=== PATIENT | female | born 1980 | race Caucasian/White ===

== ENCOUNTER 2016-07-30 10:33 | Emergency (ER) | payer OTHER ==
[~2016-07-30] VITALS: Ht 149.9 cm; Wt 56.2 kg
[2016-07-30 10:41] VITALS: TEMP 36.8; Ht 149.9 cm; Wt 56.2 kg
[2016-07-30] MEDS ORDERED: ONDANSETRON INJ 2 MG/ML 2 ML VIAL IV STA (11:08)
[2016-07-30] MEDS ORDERED: SODIUM CHLORIDE 0.9% 1000ML 1,000 ML IV STA (11:08)
[2016-07-30] MEDS ORDERED: MoRPHine SULFATE 4 MG/ML 1 ML CARP\\VIAL IV STA (11:08)
[2016-07-30 11:17] LABS: HEMATOCRIT 46.5 % (37-47); MEAN CELL VOLUME 94.5 fL (80-100); MEAN CORPUSCULAR HEMOGLOBIN 32.9 pg (25-34); MEAN CORPUSCULAR HGB CONC 34.8 g/dl (32-36); MEAN PLATELET VOLUME 9.6 fL (7.4-10.4); PLATELET COUNT 276 K/uL (130-400); RED BLOOD COUNT 4.92 M/uL (4.2-5.4); WHITE BLOOD COUNT 6.64 K/uL (4.8-10.8)
--- NOTE | 2016-07-30 11:19 | EMERGENCY ROOM VISIT NOTE ---
History First contact with patient: 10:59 Chief Complaint: FLANK PAIN Stated Complaint: LEFT SIDE, BACK/FRONT PAIN History of Present Illness The patient is a 36 year old female who presents to the Emergency Room with complaints of left flank pain which began this morning. The patient reports that she was pain-free when she went to bed last night, but was restless. She states that when she woke up this moaning, she had pain in the left side of her back. She took ibuprofen without relief but was able to go back to bed. She reports that the pain began to radiate into her left lower abdomen. She reports occasional nausea, but has not vomited. She has felt chills, but denies any fevers. She rates the discomfort a 5/10 and states that it is constant. She denies any aggravating or alleviating factors. She denies any history of kidney stones, but does report a history of kidney stones in both her mother and father. She has had a cholecystectomy, but denies any other significant past medical history. She reports she currently has her menstrual period. The patient denies any urinary symptoms, abnormal vaginal discharge, chest pain, shortness of breath, URI symptoms or changes in bowel movements. Review of Systems A complete 10-point Review of Systems was discussed with the patient, with pertinent positives and negatives listed in the History of Present Illness. All remaining Review of Systems questions can be considered negative unless otherwise specified. Past Medical/Surgical History Medical Problems: (1) history of skin problems (2) Migraine Surgical Problems: (1) History of hysterectomy (2) History of tonsillectomy (3) History of tubal ligation Family History Cancer Diabetes mellitus Heart disease Hypertension Kidney disease Kidney stones Social History Smoking Status: Current Every Day Smoker Alcohol Use: occasionally Marital Status: in relationship Housing Status: lives with family Occupation Status: unemployed Current/Historical Medications No Active Prescriptions or Reported Meds Allergies Coded Allergies: Penicillins (Verified Allergy, Unknown, nausea, 07/30/16) Sulfa Antibiotics (Verified Allergy, Unknown, RASH, 07/30/16) Physical Exam Vital Signs Date Time Temp Pulse Resp B/P Pulse Ox O2 Delivery O2 Flow Rate FiO2 07/30/16 12:18 69 96/58 97 Room Air 07/30/16 10:41 36.8 71 18 106/68 99 Room Air Physical Exam VITALS: Vitals are noted on the nurse's note and reviewed by myself. Vital signs stable. GENERAL: This is a 36-year-old female, in no acute distress, nondiaphoretic, well-developed well-nourished. SKIN: Capillary reflex less than 2 seconds. HEART: Regular rate and rhythm without murmurs gallops or rubs. LUNGS: Clear to auscultation bilaterally without wheezes, rales or rhonchi. ABDOMEN: Positive bowel sounds x 4. Soft, nontender without masses or organomegaly. MUSCULOSKELETAL: Mild left CVA tenderness NEURO: Patient was alert and oriented to person place and time. Medical Decision & Procedures ER Provider Diagnostic Interpretation: ABDOMEN AND PELVIS CT WITHOUT CONTRAST FINDINGS: Lung bases are clear. Patient is status post prior cholecystectomy. Liver spleen and pancreas are unremarkable. Kidneys negative for hydronephrosis. Bowel pattern is nonobstructive. There is a slight increase in fecal load throughout the colon. There is a 2.3 cm left ovarian cyst. There is a 3 cm right ovarian cyst. There is a trace amount free fluid within the pelvic cul-de-sac. Uterus is anteflexed. IMPRESSION: 1. 2.3 cm left ovarian cyst. 2. 3 cm right ovarian cyst. 3. Nonobstructive bowel pattern. 4. No evidence for an obstructing urinary tract calculus. 5. Mild increase in fecal load throughout the colon Laboratory Results 07/30/16 11:00 Red Blood Count 4.92, Mean Corpuscular Volume 94.5, Mean Corpuscular Hemoglobin 32.9, Mean Corpuscular Hemoglobin Concent 34.8, Mean Platelet Volume 9.6, Neutrophils (%) (Auto) 52.4, Lymphocytes (%) (Auto) 37.0, Monocytes (%) (Auto) 8.4, Eosinophils (%) (Auto) 1.4, Basophils (%) (Auto) 0.5, Neutrophils # (Auto) 3.48, Lymphocytes # (Auto) 2.46, Monocytes # (Auto) 0.56, Eosinophils # (Auto) 0.09, Basophils # (Auto) 0.03 07/30/16 11:00 Test 07/30/16 11:00 White Blood Count 6.64 K/uL (4.8-10.8) Red Blood Count 4.92 M/uL (4.2-5.4) Hemoglobin 16.2 g/dL (12.0-16.0) Hematocrit 46.5 % (37-47) Mean Corpuscular Volume 94.5 fL (80-100) Mean Corpuscular Hemoglobin 32.9 pg (25-34) Mean Corpuscular Hemoglobin Concent 34.8 g/dl (32-36) Platelet Count 276 K/uL (130-400) Mean Platelet Volume 9.6 fL (7.4-10.4) Neutrophils (%) (Auto) 52.4 % Lymphocytes (%) (Auto) 37.0 % Monocytes (%) (Auto) 8.4 % Eosinophils (%) (Auto) 1.4 % Basophils (%) (Auto) 0.5 % Neutrophils # (Auto) 3.48 K/uL (1.4-6.5) Lymphocytes # (Auto) 2.46 K/uL (1.2-3.4) Monocytes # (Auto) 0.56 K/uL (0.11-0.59) Eosinophils # (Auto) 0.09 K/uL (0-0.5) Basophils # (Auto) 0.03 K/uL (0-0.2) RDW Standard Deviation 46.1 fL (36.4-46.3) RDW Coefficient of Variation 13.3 % (11.5-14.5) Immature Granulocyte % (Auto) 0.3 % Immature Granulocyte # (Auto) 0.02 K/uL (0.00-0.02) Urine Color YELLOW Urine Appearance CLEAR (CLEAR) Urine pH 5.0 (4.5-7.5) Urine Specific [place] 1.014 (1.000-1.030) Urine Protein NEG (NEG) Urine Glucose (UA) NEG (NEG) Urine Ketones NEG (NEG) Urine Occult Blood 2+ (NEG) Urine Nitrite NEG (NEG) Urine Bilirubin NEG (NEG) Urine Urobilinogen NEG (NEG) Urine Leukocyte Esterase NEG (NEG) Urine WBC (Auto) 1-5 /hpf (0-5) Urine RBC (Auto) 5-10 /hpf (0-4) Urine Hyaline Casts (Auto) 0 /lpf (0-5) Urine Epithelial Cells (Auto) >30 /lpf (0-5) Urine Bacteria (Auto) NEG (NEG) Urine Test NEG (NEG) Anion Gap 7.0 mmol/L (3-11) Est Creatinine Clear Calc Drug Dose 73.6 ml/min Estimated GFR () 109.2 Estimated GFR (Non- 94.2 BUN/Creatinine Ratio 11.3 (10-20) Calcium Level 9.0 mg/dl (8.5-10.1) Total Bilirubin 0.5 mg/dl (0.2-1) Aspartate Amino Transf (AST/SGOT) 19 U/L (15-37) Alanine Aminotransferase (ALT/SGPT) 33 U/L (12-78) Alkaline Phosphatase 60 U/L (45-117) Total Protein 8.0 gm/dl (6.4-8.2) Albumin 4.4 gm/dl (3.4-5.0) Globulin 3.6 gm/dl (2.5-4.0) Albumin/Globulin Ratio 1.2 (0.9-2) Medications Administered Medications (Trade) Dose Ordered Sig/Yoandy Route Start Time Stop Time Status Last Admin Dose Admin Sodium Chloride (Nss 1000ml) 1,000 ml @ 999 mls/hr Q1H1M STAT IV 07/30/16 11:08 07/30/16 12:08 DC 07/30/16 11:16 999 MLS/HR Ondansetron HCl (Zofran Inj) 4 mg NOW STAT IV 07/30/16 11:08 07/30/16 11:11 DC 07/30/16 11:16 4 MG Morphine Sulfate (MoRPHine SULFATE INJ) 4 mg NOW STAT IV 07/30/16 11:08 07/30/16 11:11 DC 07/30/16 11:16 4 MG Medical Decision Differential diagnosis includes renal calculus, pyelonephritis, musculoskeletal pain, trauma, herpes zoster, malignancy, among others. The patient was evaluated as above. Labs were drawn and IV access was obtained. Imaging studies were performed and read by radiology as above. The patient was medicated with 4 mg morphine IV, 4 mg Zofran IV and hydrated with 1 L normal saline solution. The patient was reassessed multiple times during their stay in the emergency department and remained in stable condition. The patient is a 36-year-old female who presents today complaining of left flank pain. Labs revealed no leukocytosis, anemia or concerning abnormalities. Urinalysis was not suggestive of infection. There was blood in the urine, consistent with the patient's current menstrual period. Urine was negative. CT of the abdomen and pelvis was performed and showed kidney stones. There were 2 small ovarian cyst, but I do not believe these are causing significant pain. The patient's discomfort is most likely musculoskeletal. Conservative measures were discussed and she was instructed to follow-up with her primary care provider for further evaluation of the symptoms. She should return here for any new/concerning symptoms or worsening of her current condition. Based on the patient's presentation, lab results, and imaging studies, I feel the patient is stable for outpatient treatment. The patient's case was reviewed with Dr. Darling, ED attending physician, who agreed with my assessment and treatment plan. Discharge instructions were reviewed with the patient. The patient verbalized understanding of my assessment and treatment plan and was discharged home in good condition. Impression Primary Impression: Left flank pain Departure Information Dispostion Home / Self-Care Condition GOOD Prescriptions No Active Prescriptions or Reported Meds Referrals No Doctor, Assigned (PCP) Patient Instructions My [facility] Additional Instructions You have been treated in the Emergency Department for Back Pain. You have received pain medicine in the emergency department which impairs your ability to operate a vehicle. It is illegal for you to drive after receiving these medicines. Your CT scan did not show any kidney stones or other concerning findings within the abdomen. You should take ibuprofen, 400-600 mg every 6 hours for pain. For pain control, you can use the following [id number] medicines (if >12 yo): - Regular strength (325mg/tab) Tylenol (acetaminophen) 2 tabs every 4-6 hours as needed. Do not exceed 12 tablets in a 24 hour period. Avoid taking more than 4 grams (4000 mg) of Tylenol per day. This includes any other sources of acetaminophen you may take on a regular basis. You should follow-up with your primary care provider within 48 hours for further evaluation of your pain. Return to the Emergency Department if your current symptoms worsen despite treatment course outlined above, or if you develop any of the following symptoms : Fevers, worsening nausea/vomiting, blood in your stools or any other new/ concerning symptoms.
[2016-07-30 11:20] LABS: URINE APPEARANCE CLEAR (CLEAR); URINE BILIRUBIN NEG (NEG); URINE COLOR YELLOW; URINE EPITHELIAL CELL AUTO >30 /lpf (0-5); URINE NITRITE NEG (NEG); URINE SPECIFIC GRAVITY 1.014 (1.000-1.030); UROBILINOGEN NEG (NEG); ZZUR CULT IF INDIC CLEAN CATCH NO
[2016-07-30 11:23] LABS: MANUAL MICROSCOPIC REQUIRED? NO; REVIEW REQ? YES
[2016-07-30 11:32] LABS: BUN/CREATININE RATIO 11.3 (10-20); CREATININE 0.8 mg/dl (0.60-1.20); POTASSIUM 4.1 mmol/L (3.5-5.1)
[2016-07-30 11:34] LABS: ALB/GLOB RATIO 1.2 (0.9-2)
--- NOTE | 2016-07-30 11:46 | DIAGNOSTIC IMAGING REPORT ---
ABDOMEN AND PELVIS CT WITHOUT CONTRAST CT DOSE: 355.90 mGy.cm HISTORY: left flank pain TECHNIQUE: Multiaxial CT images of the abdomen and pelvis were performed without the use of intravenous and oral contrast according to the standard department stone protocol. COMPARISON STUDY: None. FINDINGS: Lung bases are clear. Patient is status post prior cholecystectomy. Liver spleen and pancreas are unremarkable. Kidneys negative for hydronephrosis. Bowel pattern is nonobstructive. There is a slight increase in fecal load throughout the colon. There is a 2.3 cm left ovarian cyst. There is a 3 cm right ovarian cyst. There is a trace amount free fluid within the pelvic cul-de-sac. Uterus is anteflexed. IMPRESSION: 1. 2.3 cm left ovarian cyst. 2. 3 cm right ovarian cyst. 3. Nonobstructive bowel pattern. 4. No evidence for an obstructing urinary tract calculus. 5. Mild increase in fecal load throughout the colon Electronically signed by: Jose G Sanchez M.D. 07/30/2016 11:45 AM Dictated Date/Time: 07/30/2016 11:43 AM
[2016-07-30 12:18] VITALS: BP 96/58; PULSE 69; O2SAT 97
[2016-07-30 12:54] LABS: BASO % 0.5 %; BASO ABS # 0.03 K/uL (0-0.2); COMPLETE YES; EOS % 1.4 %; IG% 0.3 %; LYMPH ABS # 2.46 K/uL (1.2-3.4); MONO % 8.4 %; NEUT % 52.4 %
== END 2016-07-30 12:41 | disposition home or self-care (01) ==
LOC: C.EDB 10:34 → C.EDC 12:41
DX: R10.9 Unspecified abdominal pain (principal); F17.200 Nicotine dependence, unspecified, uncomplicated; Z98.51 Tubal ligation status

== ENCOUNTER 2019-02-13 07:52 | Observation (INO) ==
--- NOTE | 2019-02-06 13:40 | Anesthesiology Consultation ---
Date of Service February 06, 2019 Assessment & Plan (1) Encounter for pre-operative examination: Chart Review Chart Review: Acceptable Risk for Surgery and Patient seen in Pre Admission Testing Patient appears optimized for surgery. Awaiting results of CXR and labs but barring any significant findings she should be ok for surgery. Consults Requested none History Surgery Operation Date: 02/13/19 08:20 Proposed Procedures p Exam Under Sedation, Total Laparoscopic Hysterectomy, Bilateral Salpingectomy, Cystoscopy - Jimi Mohamud MD Height/Weight Height: 4 ft 11 in Weight: 51.5 kg Allergies Allergy/AdvReac Type Severity Reaction Status Date / Time nickel Allergy Mild SKIN Verified 01/30/19 08:35 IRRITATION Penicillins Allergy Mild Nausea Verified 01/30/19 08:35 Sulfa (Sulfonamide Allergy Mild RASH Verified 01/30/19 08:35 Antibiotics) QUARTERNEUM 15 Allergy Intermediate WATER Uncoded 01/30/19 08:35 BLISTERS/DERMATITIS Medications Home Medications Medication Instructions Recorded Confirmed Last Taken ibuprofen 400 - 600 mg PO Q6H PRN 01/30/19 01/30/19 Unknown Past Medical History Medical History Migraine (Chronic) Asthma A CHILD (NO CURRENT INHALER) History of depression Past Family History Family History Grandfather (Maternal) Family history of diabetes mellitus Other Family history of kidney stones Past Surgical History Surgical History History of tubal ligation History of ankle surgery LEFT (2 SURGERIES) RECONSTUCTION History of breast biopsy History of section X 2 History of cholecystectomy History of dilatation and curettage MULTIPLE History of myringotomy History of tonsillectomy and adenoidectomy History of tooth extraction Hx of lumpectomy BENIGN Social History Smoking Status: Current every day smoker tobacco type: cigarettes Smoking cigarettes per day: 20 CIG Do You Dip or Chew Tobacco: No Hx Alcohol Use: Yes Alcohol type: beer and hard liquor alcohol intake frequency: holidays/special occasions only Hx Substance Use: Yes substance use type: marijuana Last Used Substance Other:: LAST USED LAST NIGHT (ADVISED) Physical Exam Vital Signs Last Vital Signs Temp 36.9 C 02/06/19 13:27 Pulse 79 02/06/19 13:27 Resp 18 02/06/19 13:27 BP 93/59 L 02/06/19 13:27 Pulse Ox 98 02/06/19 13:27 ENMT Mouth: + TMJ abnormality and + dentition abnormality (two missing molars); no chipped teeth, no loose teeth and oral opening not small Thyromental Distance: > or= 3.5 Finger Breadths Mallampati Class: I Neck normal visual inspection Respiratory normal respiratory effort and + cough (chronic, 2/2 smoking per patient) Cardiovascular Rate/Rhythm: regular rate and regular rhythm Musculoskeletal Spine: normal cervical ROM and no pain with cervical ROM Neurologic moves all extremities Psychiatric Orientation: alert and oriented x 3 Testing Electrocardiogram Date: 02/06/19 Findings: + NSR @ (71) Normal sinus rhythm Cannot rule out Anterior infarct , age undetermined Abnormal ECG When compared with ECG of 25-APR-2015 10:34, No significant change was found
--- NOTE | 2019-02-06 14:19 | XRay Report ---
XR chest Pre-admission PA/Lat CLINICAL HISTORY: Preoperative evaluation. COMPARISON STUDY: Chest radiograph April 25, 2015. FINDINGS: Lung volumes are normal. Lungs are clear. There is no pneumothorax or pleural effusion. Car diac size is normal. Mediastinal contours are normal. There is no evidence for pulmonary edema. Incid ental note is made of cholecystectomy clips. Nipple shadow projects over the right lower lung. IMPRESSION: No acute cardiopulmonary findings. Electronically signed by: Martin Quezada M.D. 02/06/2019 2:18 PM
[2019-02-06 14:48] LABS: Basophils # (auto) 0.03 K/uL (0-0.2); Basophils % (auto) 0.4 %; Eosinophils # (auto) 0.04 K/uL (0-0.5); Eosinophils % (auto) 0.5 %; Hematocrit (blood only) 41.4 % (37-47); Hemoglobin 14.1 g/dL (12.0-16.0); Immature Granulocytes # (auto) 0.01 K/uL (0.00-0.02); Immature Granulocytes % (auto) 0.1 %; Lymphocytes # (auto) 2.01 K/uL (1.2-3.4); Lymphocytes % (auto) 26.3 %; Mean Corpuscular Hemoglobin 33.1 pg (25-34); Mean Corpuscular Hgb Conc 34.1 g/dL (32-36); Mean Corpuscular Volume 97.2 fL (80-100); Mean Platelet Volume 10.8 fL (7.4-10.4); Monocytes # (auto) 0.56 K/uL (0.11-0.59); Monocytes % (auto) 7.3 %; Neutrophils # (auto) 4.99 K/uL (1.4-6.5); Neutrophils % (auto) 65.4 %; Platelet Count 243 K/uL (130-400); RDW Coefficient of Variation 13.2 % (11.5-14.5); RDW Standard Deviation 46.9 fL (36.4-46.3); Red Blood Count 4.26 M/uL (4.2-5.4); White Blood Count 7.64 K/uL (4.8-10.8)
[2019-02-06 14:55] LABS: BUN Creatinine Ratio 7.8 (10-20); Calcium 8.8 mg/dl (8.5-10.1); Creatinine Clr Calc Pharmacy 43.7 ml/min; Est GFR (African American) 67.3; Est GFR (Non-African American) 58.1; Potassium 3.8 mmol/L (3.5-5.1)
[2019-02-06 15:00] LABS: INR 1.1 (0.9-1.1); Prothrombin Time 10.8 Seconds (9.0-12.0)
[~2019-02-13 07:52] MED LIST: GENTAMICIN SULFATE 75 MG in DEXTROSE 5% 100 ML IV SCH; LACTATED RINGER'S 1,000 ML IV SCH; LIDOCAINE HCL 2% 2 ML VIAL/AMP(20MG/ML) INFIL ONE; LR 15ML/HR IV SCH; MIDAZOLAM HCL 1 MG/ML 2ML VIAL ONE; ONDANSETRON INJ 2 MG/ML 2 ML VIAL ONE; PROPOFOL IV EMULSION 10 MG/ML 20 ML VIAL IV ONE; ROCURONIUM BROMIDE 10 MG/ML 5 ML VIAL ONE; fentaNYL citrate 100 MCG/2 ML VIAL ONE
--- NOTE | 2019-02-13 08:27 | History & Physical Bridge Note ---
Date of Service February 13, 2019 History & Physical Bridge Note I have examined the patient, reviewed the History & Physical and in the interval since the performance of the History & Physical I have noted the following changes of clinical significance: no changes noted
[2019-02-13] MEDS ORDERED: MINERAL OIL LIGHT 10 ML BTL ONE (08:41)
[2019-02-13] MEDS ORDERED: BUPIVACAINE 0.5 % 5 MG/1 ML MPF 30ML VIAL ONE (08:41)
[2019-02-13] MEDS ORDERED: METHYLENE BLUE 0.5% 10 ML VIAL ONE (08:42)
[2019-02-13] MEDS ORDERED: ACETAMINOPHEN 325 MG TAB PO PRN (09:01)
[2019-02-13] MEDS ORDERED: LORazepam 0.5 MG TAB PO PRN (09:01)
[2019-02-13] MEDS ORDERED: ALUMINUM/MAGNESIUM/SIMETH (MAALOX MAX) 30 ML UDC PO PRN (09:01)
[2019-02-13] MEDS ORDERED: ONDANSETRON INJ 2 MG/ML 2 ML VIAL IV PRN (09:01)
[2019-02-13] MEDS ORDERED: KETOROLAC 30 MG/ML VIAL IV PRN (09:06)
[2019-02-13] MEDS: CLINDAMYCIN 600 MG/54 ML BAG IV SCH (09:15)
[2019-02-13] MEDS ORDERED: ATROPINE SULFATE 0.1 MG/ML 10ML SYR IV PRN (09:36)
[2019-02-13] MEDS ORDERED: ePHEDrine sulfate 50 MG/ML AMP IV PRN (09:36)
[2019-02-13] MEDS ORDERED: GLYCOPYRROLATE 0.2 MG/ML VIAL ONE (10:32)
[2019-02-13] MEDS ORDERED: NEOSTIGMINE METHYLSULFATE 5 MG/5 ML SYR ONE (10:32)
[2019-02-13] MEDS ORDERED: fentaNYL citrate 100 MCG/2 ML VIAL ONE (10:39)
[2019-02-13] MEDS ORDERED: FLOSEAL HEMOSTATIC MATRIX 10ML TOP ONE (12:14)
[2019-02-13] MEDS ORDERED: HYDROmorphone INJ 2 MG/ML SYR/VIAL ONE (12:35)
--- NOTE | 2019-02-13 12:38 | Post Operative Brief Note ---
Immediate Post Op Note v1 Date of Surgery February 13, 2019 Pre & Post Diagnosis Operation Date: 02/13/19 09:10 Pre-Op Diagnosis: Heavy Periods, Declines Non-surgical Options Post-Op Diagnosis: Heavy Periods, Declines Non-surgical Options Procedure Operation Date: 02/13/19 09:10 Actual Procedures p Exam Under Sedation, Total Laparoscopic Hysterectomy, Bilateral Salpingectomy, Cystoscopy - Jimi Mohamud MD Surgeon Jimi Mohamud MD Care Manager Dr. Quinonez and HOA Drew Estimated Blood Loss 100 Findings Consistent with Post-Op Diagnosis Drains Hollis Catheter Anesthesia Type General Complications none Disposition Accompanied Patient To Recovery: Yes Disposition: PCU Overlapping Procedure I was present for: the critical portions of procedure. (I WAS PRESENT FOR THE ENTIRE CASE)
[2019-02-13] MEDS: HYDROmorphone INJ 1 MG/ML SYRINGE IV PRN ×6 (12:59→13:24)
[2019-02-13] MEDS ORDERED: METOCLOPRAMIDE HCL 10 MG TABLET PO PRN (13:14)
--- NOTE | 2019-02-13 13:59 | Anesthesiology Progress Note ---
Date of Service February 13, 2019 Anesthesia Post Procedure Vital Signs Vital Signs: Temp Pulse Pulse Resp BP BP Pulse Ox 02/13/19 13:40 36.5 C 84 14 124/82 94 02/13/19 13:30 77 14 124/73 94 02/13/19 13:20 70 14 118/67 98 02/13/19 13:10 76 16 115/81 97 02/13/19 13:00 71 16 126/59 L 98 02/13/19 12:52 36.4 C L 73 16 124/73 100 02/13/19 08:42 36.7 C 63 16 103/75 97 Pain Intensity Abdomen: Pain Intensity: 7 Transfer of Care Handoff Completed per policy Notes Mental Status: alert / awake / arousable Patient Amnestic to Procedure: Yes Nausea / Vomiting: adequately controlled Pain: adequately controlled Airway Patency, RR, SpO2: stable & adequate BP & HR: stable & adequate Hydration State: stable & adequate Anesthetic Complications: no major complications apparent and Pt Satisfied with anesthetic care
--- NOTE | 2019-02-13 14:33 | Operative Report ---
DATE OF OPERATION: 02/13/2019 PREOPERATIVE DIAGNOSES: The patient is a 38-year-old G2, P2-0-0-2 female with heavy menstrual periods, dysmenorrhea, not responding to medical therapy, declined IUD or endometrial ablation. POSTOPERATIVE DIAGNOSES: The patient is a 38-year-old G2, P2-0-0-2 female with heavy menstrual periods, dysmenorrhea, not responding to medical therapy, declined IUD or endometrial ablation. PROCEDURE: Examination under anesthesia, total laparoscopic hysterectomy, bilateral salpingectomy and cystoscopy. SURGEON: Jimi Mohamud MD ICHTHYOLOGY TEACHER: Dr. Quinonez and HOA Jimenez. ESTIMATED BLOOD LOSS: 100. FLUIDS: 1600 mL of lactated ringer. DRAINS: Hollis catheter drained 100 mL of clear urine. SPECIMENS: Uterus and bilateral tubes and left paratubal cyst. COMPLICATIONS: None. ANESTHESIA: General endotracheal. FINDINGS: Examination under anesthesia revealed anteverted normal sized uterus and nonpalpable adnexa. LAPAROSCOPIC FINDINGS: Normal uterus, fallopian tubes were partially removed in the past with cornual stump remaining and left paratubal cyst versus left fallopian tube remnant and simple cyst of left ovary and sign of ovulation on the left ovary and normal right ovary. DESCRIPTION OF PROCEDURE: The patient was taken to the operating room where general anesthesia was given without difficulty. She was placed in dorsal lithotomy position, prepared and draped in usual sterile fashion. A Hollis catheter was inserted and then a speculum was placed in the patient's vagina. Cervix was visualized, grasped with single tooth tenaculum and then cervical os was dilated with Hegar dilators, and then a medium size VCare uterine manipulator was introduced from cervix into the uterus and its balloon was inflated and then the green cap was attached to the cervix by sutures on at 12 and 6 o'clock position and the blue cap was fixed onto the green cap to provide a manipulation during surgery between the vaginal fornices and the cervix and then gloves were changed. Attention was turned to the patient's abdomen. A periumbilical incision was made from the old scar and then fascia was visualized, grasped with 2 Deirdre clamps, incised with a scalpel and the peritoneum was entered with the tip of hemostat. A 12 mm Courtney trocar was placed from this incision. CO2 gas was attached for pneumoperitoneum and then intra-abdominal placement was confirmed with the scope. The patient was put in Trendelenburg position. Uterus and pelvic organs were visualized. There was increased vascularity but no signs of endometriosis noted in the pelvis and ovaries. Normal upper abdomen and normal bowel surfaces noted. Then 2 more trochars were placed in lower abdominal quadrants. From right lower quadrant, 5 mm incision was made and a 5 mm trocar was placed under direct visualization. From the left lower quadrant, 11 mm trocar was entered under direct visualization. The patient was placed in Trendelenburg position, the bowels were gently moved back. Uterus was manipulated and brought to the midline and then left adnexa was stretched, round ligament was identified, it was coagulatedx3 and cut with LigaSure device and then broad ligament was coagulated and cut and the anterior leaf of broad ligament was entered with the tip of ligature, coagulated and cut. There were some adhesions between the bladder serosa and the lower uterine segment. Those were dissected off sharply with the LigaSure device gently and carefully and then posterior leaf of broad ligament was also coagulated and cut. Attention was turned to the right adnexa and the remaining half of right fallopian tube was coagulated and cut with the mesosalpinx and then we reached right uteroovarian ligament, which was coagulated and cut. Then anterior leaf of broad ligament was brought down with the LigaSure device and then some of the adhesions between the bladder and the uterus was also dissected off sharply with the LigaSure device and bladder was retracted down all the way. Then on both sides, uterine arteries were coagulated 3 times and then cut. Then the cardinal ligaments were coagulated and cut . Then the cervical/ vaginal tissues were freed from all the tissues and then we were able to feel the tip of the cup from vagina. It was incised with the tip of hook. It was incised circumferentially around the cervix. Uterus was detached, it was removed from the vagina with the left fallopian tube cyst. The pelvis was irrigated with warm normal saline and suctioned. The vaginal cuff was repaired with No:0 absorbable suture on EndoStitch continuously and Lapra-Ty was placed to provide laparoscopic tie and then good hemostasis was achieved. The pelvis was irrigated with warm normal saline and suctioned again and then incision was covered with FloSeal to prevent oozing and pictures were taken before and after. Excellent hemostasis was achieved. Then Attention was turned for cystoscopy. Cystoscopy was done. The bladder was visualized to be normal and intact bladder wall and then bilaterally urine ejection was seen on both ureteral openings into the bladder. There was a white patch in the posterior bladder wall close to the ureteral opening. It was flat and irregular. No urologist was available for consult. Pictures were taken for outpatient follow up. Then cystoscopy was ended. The bladder was drained. A new Hollis catheter was placed and then attention was turned to the patient's abdomen. Fascial incisions were repaired with 0 Vicryl with [id number] stitches and then skin incisions were repaired with 4-0 Monocryl and then patient was taken out from lithotomy position, cleaned and dried and extubated successfully. She was taken to recovery room in stable condition. No complications happened. I and Dr. Quinonez and HOA Jimenez, were present during whole procedure. She was given clindamycin and gentamicin before surgery. I attest to the content of the Intraoperative Record and any orders documented therein. Any exceptions are noted below. ROSE MARY
[2019-02-13] MEDS: LACTATED RINGER'S 1,000 ML IV SCH (15:55)
--- NOTE | 2019-02-13 17:23 | Obstetrical Progress Note ---
Date of Service February 13, 2019 Subjective Postop check Patient is seen and examined Feels well, no complaints Pain is under control with meds No CP/ SOB/ Dizziness/ N&V/ VB/ Leg pain Not OOB yet Tolerating clears Explained about the surgery and findings Vital Signs Height Weight Body Mass Index Blood Pressure Blood Pressure Position Temperature Temperature Source 4 ft 11 in 48.7 kg 21.7 113/66 Lying 37 C Oral 02/13/19 09:35 02/13/19 09:35 02/13/19 08:43 02/13/19 14:55 02/13/19 14:55 02/13/19 13:55 02/13/19 13:55 Pulse Rate Respiratory Rate Pulse Oximetry Oxygen Flow Rate 76 16 98 2 02/13/19 14:55 02/13/19 14:55 02/13/19 14:55 02/13/19 14:55 Vital Signs Temp Pulse Pulse Pulse Resp BP BP 02/13/19 14:55 76 16 113/66 02/13/19 14:24 73 16 117/73 02/13/19 13:55 37 C 78 16 119/75 02/13/19 13:40 36.5 C 84 14 124/82 02/13/19 13:30 77 14 124/73 02/13/19 13:20 70 14 118/67 02/13/19 13:10 76 16 115/81 02/13/19 13:00 71 16 126/59 L 02/13/19 12:52 36.4 C L 73 16 124/73 02/13/19 08:42 36.7 C 63 16 103/75 Pulse Ox 02/13/19 14:55 98 02/13/19 14:24 88 L 02/13/19 13:55 97 02/13/19 13:40 94 02/13/19 13:30 94 02/13/19 13:20 98 02/13/19 13:10 97 02/13/19 13:00 98 02/13/19 12:52 100 02/13/19 08:42 97 Intake & Output 02/13/19 02/13/19 02/13/19 06:59 14:59 22:59 Intake Total 1601.875 / 1601.875 Output Total 300 / 300 Balance 1301.875 / 1301.875 Weight 48.7 kg Intake: IV 201.875 / 201.875 Gentamicin Sulfate 75 mg In D5 101.875 / 101.875 100 ml @ 100 mls/hr IV PREOP MICKEY Rx#:[id number] Lr 1,000 ml @ 125 mls/hr IV . 100 / 100 Q8H MICKEY Rx#:[id number] IV Perioperative 1400 / 1400 Output: Estimated Blood Loss 100 / 100 Urine Amount (Catheter) 200 / 200 Thornton/Indwelling 200 / 200 PE: General: Alert, orientedx3, NAD CVS: S1S2 RRR Lungs: CTAB Abd: soft, NT, ND, BS+, Incisions C/D/I No VB Ext: NT, no edema, SCD's on AP: 38 yo female s/p TLH, Cystoscopy , pod#0 VSS Afebrile doing well Continue to routine postop care Encourage PO intake, may ambulate D/C thornton in am Results & Data Vital Signs (Past 12 Hours) Vital Signs Temp Pulse Pulse Pulse Resp BP BP 02/13/19 14:55 76 16 113/66 02/13/19 14:24 73 16 117/73 02/13/19 13:55 37 C 78 16 119/75 02/13/19 13:40 36.5 C 84 14 124/82 02/13/19 13:30 77 14 124/73 02/13/19 13:20 70 14 118/67 02/13/19 13:10 76 16 115/81 02/13/19 13:00 71 16 126/59 L 02/13/19 12:52 36.4 C L 73 16 124/73 02/13/19 08:42 36.7 C 63 16 103/75 Pulse Ox 02/13/19 14:55 98 02/13/19 14:24 88 L 02/13/19 13:55 97 02/13/19 13:40 94 02/13/19 13:30 94 02/13/19 13:20 98 02/13/19 13:10 97 02/13/19 13:00 98 02/13/19 12:52 100 02/13/19 08:42 97
[2019-02-13] MEDS: OXYCODONE/ACETAMINOPHEN 5mg/325mg TAB PO PRN ×2 (19:08→23:32)
[2019-02-13] MEDS: SIMETHICONE 80 MG CHEW PO SCH ×2 (21:45→23:35)
[2019-02-13] MEDS: DOCUSATE SODIUM 100 MG CAP PO SCH (21:46)
[2019-02-13] MEDS: IBUPROFEN 600 MG TAB PO PRN (23:33)
[2019-02-14] MEDS: LACTATED RINGER'S 1,000 ML IV SCH (01:09)
[2019-02-14] MEDS: OXYCODONE/ACETAMINOPHEN 5mg/325mg TAB PO PRN (04:24)
[2019-02-14 06:43] LABS: Basophils # (auto) 0.02 K/uL (0-0.2); Basophils % (auto) 0.2 %; Eosinophils # (auto) 0.05 K/uL (0-0.5); Eosinophils % (auto) 0.5 %; Hematocrit (blood only) 34.2 % (37-47); Hemoglobin 11.7 g/dL (12.0-16.0); Immature Granulocytes # (auto) 0.02 K/uL (0.00-0.02); Immature Granulocytes % (auto) 0.2 %; Lymphocytes # (auto) 2.42 K/uL (1.2-3.4); Lymphocytes % (auto) 22.9 %; Mean Corpuscular Hemoglobin 33.1 pg (25-34); Mean Corpuscular Hgb Conc 34.2 g/dL (32-36); Mean Corpuscular Volume 96.9 fL (80-100); Mean Platelet Volume 9.9 fL (7.4-10.4); Monocytes # (auto) 0.96 K/uL (0.11-0.59); Monocytes % (auto) 9.1 %; Neutrophils # (auto) 7.09 K/uL (1.4-6.5); Neutrophils % (auto) 67.1 %; Platelet Count 213 K/uL (130-400); RDW Coefficient of Variation 13.4 % (11.5-14.5); RDW Standard Deviation 46.9 fL (36.4-46.3); Red Blood Count 3.53 M/uL (4.2-5.4); White Blood Count 10.56 K/uL (4.8-10.8)
[2019-02-14 07:23] LABS: Albumin Level 2.9 gm/dl (3.4-5.0); BUN Creatinine Ratio 10.3 (10-20); Calcium 8.1 mg/dl (8.5-10.1); Creatinine Clr Calc Pharmacy 61.3 ml/min; Est GFR (African American) 101.5; Est GFR (Non-African American) 87.6; Potassium 3.9 mmol/L (3.5-5.1)
[2019-02-14 07:26] LABS: Albumin Globulin Ratio 1.2 (0.9-2); Bilirubin,Total 0.3 mg/dl (0.2-1); Globulin 2.5 gm/dl (2.5-4.0); Total Protein 5.4 gm/dl (6.4-8.2)
[2019-02-14] MEDS: DOCUSATE SODIUM 100 MG CAP PO SCH (07:31)
[2019-02-14] MEDS: SIMETHICONE 80 MG CHEW PO SCH (07:31)
[2019-02-14] MEDS: IBUPROFEN 600 MG TAB PO PRN (07:32)
--- NOTE | 2019-02-14 08:36 | Obstetrical Progress Note ---
Date of Service February 14, 2019 Subjective Patient is seen and examined. She feels well, no complaints. Likes to be discharged today. Pain is under control with oral meds. Ambulating without dizziness Voiding without difficulty Tolerating regular diet with out N&V Flatus + BM + No Bleeding No fever/ chills/ CP/ SOB/ N&V/ Leg pain Vital Signs Temp Pulse Resp BP Pulse Ox 02/14/19 04:25 37.4 C 75 16 106/61 97 02/13/19 23:25 37.0 C 74 16 107/61 97 Lab Results 02/06/19 02/06/19 02/06/19 Range/Units 13:40 13:40 13:40 WBC 7.64 (4.8-10.8) K/uL RBC 4.26 (4.2-5.4) M/uL Hgb 14.1 (12.0-16.0) g/dL Hct 41.4 (37-47) % MCV 97.2 (80-100) fL MCH 33.1 (25-34) pg MCHC 34.1 (32-36) g/dL RDW Std Deviation 46.9 H (36.4-46.3) fL RDW Coeff of Stacey 13.2 (11.5-14.5) % Plt Count 243 (130-400) K/uL MPV 10.8 H (7.4-10.4) fL Immature Gran % (Auto) 0.1 % Neut % (Auto) 65.4 % Lymph % (Auto) 26.3 % [place] % (Auto) 7.3 % Eos % (Auto) 0.5 % Baso % (Auto) 0.4 % Immature Gran # (Auto) 0.01 (0.00-0.02) K/uL Neut # (Auto) 4.99 (1.4-6.5) K/uL Lymph # (Auto) 2.01 (1.2-3.4) K/uL [place] # (Auto) 0.56 (0.11-0.59) K/uL Eos # (Auto) 0.04 (0-0.5) K/uL Baso # (Auto) 0.03 (0-0.2) K/uL PT 10.8 (9.0-12.0) Seconds INR 1.1 (0.9-1.1) APTT 27.0 (21.0-31.0) Seconds PTT Ratio 1.0 Sodium 141 (136-145) mmol/L Potassium 3.8 (3.5-5.1) mmol/L Chloride 108 H (98-107) mmol/L Carbon Dioxide 29 (21-32) mmol/L Anion Gap 4.0 (3-11) BUN 9 (7-18) mg/dl Creatinine 1.18 (0.6-1.2) mg/dl Est Cr Clr Drug Dosing 43.7 ml/min Est GFR ( Amer) 67.3 Est GFR (Non-Af Amer) 58.1 BUN/Creatinine Ratio 7.8 L (10-20) Glucose 90 (70-99) mg/dl Calcium 8.8 (8.5-10.1) mg/dl Total Bilirubin (0.2-1) mg/dl AST (15-37) U/L ALT (12-78) U/L Alkaline Phosphatase (45-117) U/L Total Protein (6.4-8.2) gm/dl Albumin (3.4-5.0) gm/dl Globulin (2.5-4.0) gm/dl Albumin/Globulin Ratio (0.9-2) POC Ur Test (NEG) Blood Type Rho(D) Type Antibody Screen 02/06/19 02/13/19 02/13/19 Range/Units 13:40 08:31 08:49 WBC (4.8-10.8) K/uL RBC (4.2-5.4) M/uL Hgb (12.0-16.0) g/dL Hct (37-47) % MCV (80-100) fL MCH (25-34) pg MCHC (32-36) g/dL RDW Std Deviation (36.4-46.3) fL RDW Coeff of Stacey (11.5-14.5) % Plt Count (130-400) K/uL MPV (7.4-10.4) fL Immature Gran % (Auto) % Neut % (Auto) % Lymph % (Auto) % [place] % (Auto) % Eos % (Auto) % Baso % (Auto) % Immature Gran # (Auto) (0.00-0.02) K/uL Neut # (Auto) (1.4-6.5) K/uL Lymph # (Auto) (1.2-3.4) K/uL [place] # (Auto) (0.11-0.59) K/uL Eos # (Auto) (0-0.5) K/uL Baso # (Auto) (0-0.2) K/uL PT (9.0-12.0) Seconds INR (0.9-1.1) APTT (21.0-31.0) Seconds PTT Ratio Sodium (136-145) mmol/L Potassium (3.5-5.1) mmol/L Chloride (98-107) mmol/L Carbon Dioxide (21-32) mmol/L Anion Gap (3-11) BUN (7-18) mg/dl Creatinine (0.6-1.2) mg/dl Est Cr Clr Drug Dosing ml/min Est GFR ( Amer) Est GFR (Non-Af Amer) BUN/Creatinine Ratio (10-20) Glucose (70-99) mg/dl Calcium (8.5-10.1) mg/dl Total Bilirubin (0.2-1) mg/dl AST (15-37) U/L ALT (12-78) U/L Alkaline Phosphatase (45-117) U/L Total Protein (6.4-8.2) gm/dl Albumin (3.4-5.0) gm/dl Globulin (2.5-4.0) gm/dl Albumin/Globulin Ratio (0.9-2) POC Ur Test NEG (NEG) Blood Type A Positive Cancelled Rho(D) Type Cancelled Antibody Screen NEGATIVE Cancelled 02/14/19 02/14/19 Range/Units 06:30 06:30 WBC 10.56 (4.8-10.8) K/uL RBC 3.53 L (4.2-5.4) M/uL Hgb 11.7 L (12.0-16.0) g/dL Hct 34.2 L (37-47) % MCV 96.9 (80-100) fL MCH 33.1 (25-34) pg MCHC 34.2 (32-36) g/dL RDW Std Deviation 46.9 H (36.4-46.3) fL RDW Coeff of Stacey 13.4 (11.5-14.5) % Plt Count 213 (130-400) K/uL MPV 9.9 (7.4-10.4) fL Immature Gran % (Auto) 0.2 % Neut % (Auto) 67.1 % Lymph % (Auto) 22.9 % [place] % (Auto) 9.1 % Eos % (Auto) 0.5 % Baso % (Auto) 0.2 % Immature Gran # (Auto) 0.02 (0.00-0.02) K/uL Neut # (Auto) 7.09 H (1.4-6.5) K/uL Lymph # (Auto) 2.42 (1.2-3.4) K/uL [place] # (Auto) 0.96 H (0.11-0.59) K/uL Eos # (Auto) 0.05 (0-0.5) K/uL Baso # (Auto) 0.02 (0-0.2) K/uL PT (9.0-12.0) Seconds INR (0.9-1.1) APTT (21.0-31.0) Seconds PTT Ratio Sodium 138 (136-145) mmol/L Potassium 3.9 (3.5-5.1) mmol/L Chloride 107 (98-107) mmol/L Carbon Dioxide 26 (21-32) mmol/L Anion Gap 5.0 (3-11) BUN 9 (7-18) mg/dl Creatinine 0.84 (0.6-1.2) mg/dl Est Cr Clr Drug Dosing 61.3 ml/min Est GFR ( Amer) 101.5 Est GFR (Non-Af Amer) 87.6 BUN/Creatinine Ratio 10.3 (10-20) Glucose 92 (70-99) mg/dl Calcium 8.1 L (8.5-10.1) mg/dl Total Bilirubin 0.3 (0.2-1) mg/dl AST 9 L (15-37) U/L ALT 11 L (12-78) U/L Alkaline Phosphatase 36 L (45-117) U/L Total Protein 5.4 L (6.4-8.2) gm/dl Albumin 2.9 L (3.4-5.0) gm/dl Globulin 2.5 (2.5-4.0) gm/dl Albumin/Globulin Ratio 1.2 (0.9-2) POC Ur Test (NEG) Blood Type Rho(D) Type Antibody Screen PE: General: Alert, orientedx3, NAD CVS: S1S2 RRR Lungs; CTAB Abd: soft, NT, ND, BS+, Incisions: Clean, dry, intact Perineum intact, no VB Ext; NT, no edema AP: 38 yo s/p TLH, Cystoscopy, pod# 1 VSS Afebrile doing well Continue to monitor Encourage ambulation, PO intake All questions were answered D/C home ater flatus Results & Data Vital Signs (Past 12 Hours) Vital Signs Temp Pulse Resp BP Pulse Ox 02/14/19 04:25 37.4 C 75 16 106/61 97 02/13/19 23:25 37.0 C 74 16 107/61 97
[2019-02-14] MEDS ORDERED: NICOTINE 7 MG/24 HR TDSY TD SCH (09:00)
--- NOTE | 2019-02-16 22:44 | Discharge Summary ---
DETAILS OF ADMISSION: The patient is a 38-year-old G2, P2-0-0-2 female with a history of heavy menstrual periods, menorrhagia, dysmenorrhea, not responded to medical therapy and declines nonsurgical options. She is scheduled laparoscopic hysterectomy. The procedure was done on 02/13/2019 without complications. It was exam under anesthesia, total laparoscopic hysterectomy, bilateral salpingectomy and cystoscopy. See dictated op note for details. On postop period, the patient was doing well. Vital signs stable, afebrile. Urine output was adequate. She ambulated on the evening and tolerated a regular diet. Physical exam was unremarkable. Abdomen was soft, nontender, nondistended. Bowel sounds present. Postop day #1 on 02/14/2019, the patient was doing well, ambulating, tolerating a regular diet, passing gas, voiding without difficulty. Vital signs stable, afebrile. Her H and H was 11.7/34.2 and her complete metabolic panel was normal and her physical exam was unremarkable. Abdomen was soft, nontender, nondistended. Bowel sounds present. Incisions were clean, dry, and intact and no vaginal bleeding. The patient desired to be discharged on postop day #1. Discharge instructions were given, when to call, prescriptions were written for pain and nausea. She is to be seen in the office as a followup. All questions were answered.
== END 2019-02-14 09:15 | disposition home or self-care (01) ==
LOC: 4N 07:52 → ASU 07:52